=== PATIENT | male | born 1995 | race Two or more races ===

== ENCOUNTER 2017-05-08 12:39 | Emergency (ER) | payer BC, OTHER ==
[~2017-05-08] VITALS: Ht 172.7 cm; Wt 56.8 kg
[2017-05-08 12:42] VITALS: BP 107/63
== END 2017-05-08 14:00 | disposition home or self-care (01) ==
LOC: ED 13:41
DX: B34.9 Viral infection, unspecified (principal); F10.10 Alcohol abuse, uncomplicated
CPT/HCPCS: 99281

== ENCOUNTER 2019-05-12 16:16 | Emergency (ER) | payer OTHER ==
[~2019-05-12] VITALS: Ht 172.7 cm; Wt 65.0 kg
[2019-05-12 16:59] VITALS: BP 109/68
== END 2019-05-12 17:08 | disposition home or self-care (01) ==
LOC: ED 17:05
DX: R00.2 Palpitations (principal); R06.00 Dyspnea, unspecified; R20.2 Paresthesia of skin; R25.2 Cramp and spasm
CPT/HCPCS: 93005; 99283